=== PATIENT | male | born 1935 | race Caucasian/White ===

== ENCOUNTER 2023-02-23 04:24 | Emergency (ER) | payer MEDICARE, SELFPAY ==
[2023-02-23 04:25] VITALS: BP 173/78; PULSE 82; RESP 18; TEMP 36.4; O2SAT 98
--- NOTE | 2023-02-23 05:10 | ED.MALEGU ---
HPI - Male Genitourinary General Chief complaint: Urogenital-Male Stated complaint: BLOOD IN URINARY CATHETER Time Seen by Provider: 02/23/23 05:07 History of Present Illness HPI Narrative: Patient brought to the emergency department from his shelter facility with hematuria. Patient is alert and oriented to person and place but confused. States that he lives at home with his who is . Patient is unsure why he is in the emergency department. Hematuria noted. He denies all complaints including fevers chills abdominal pain and chest pain Related Data Home Medications Medication Instructions Recorded Confirmed Saccharomyces boulardii 250 mg 250 mg PO BID 02/23/23 capsule apixaban 5 mg tablet (Eliquis) 5 mg PO BID 02/23/23 bisacodyl 10 mg rectal suppository 10 mg RECTAL DAILY PRN Constipation 02/23/23 insulin lispro 100 unit/mL subcut 02/23/23 subcutaneous pen (Humalog KwikPen (U-100) Insulin) levothyroxine 150 mcg tablet 150 mcg PO DAILY 02/23/23 losartan 50 mg tablet 50 mg PO DAILY 02/23/23 magnesium citrate 02/23/23 memantine 5 mg tablet 5 mg PO QAM 02/23/23 metoprolol tartrate 100 mg tablet 100 mg PO ONCE 02/23/23 pravastatin 20 mg tablet 20 mg PO DAILY 02/23/23 sertraline 25 mg tablet 25 mg PO DAILY 02/23/23 tamsulosin 0.4 mg capsule (Flomax) mg PO 02/23/23 trazodone 50 mg tablet 50 mg PO HS 02/23/23 Allergies Allergy/AdvReac Type Severity Reaction Status Date / Time No Known Allergies Allergy Unverified 08/03/18 13:09 Review of Systems Review of Systems: Review of systems negative except what is documented in the HPI Exam Narrative: GENERAL: Well-appearing, well-nourished, and in no acute distress. HEAD: Normocephalic, atraumatic. EYES: PERRLA and EOMI. ENT: Nares clear, no rhinorrhea or epistaxis. Mucous membranes moist. NECK: Supple. CHEST: Clear to auscultation. No respiratory distress. HEART: Regular rate and rhythm. ABDOMEN: Soft, nontender, nondistended. EXTREMITIES: Normal range of motion. No edema. SKIN: Warm, dry, no rash. NEURO: No focal deficits. Alert and oriented x2 PSYCH: Normal mood and affect. Course Course Emergency Course: Hematuria has resolved with CBI. Urinary tract infection likely source of hematuria. Patient is in no distress. Additional labs unremarkable. We will plan for discharge to home Vital Signs Vital signs: Vital Signs Temperature 36.4 C 02/23/23 04:25 Pulse Rate 82 02/23/23 04:25 Respiratory Rate 18 02/23/23 04:25 Blood Pressure 173/78 H 02/23/23 04:25 Pulse Oximetry 98 02/23/23 04:25 Oxygen Delivery Room Air 02/23/23 04:25 Temperature 36.4 C 02/23/23 04:25 Pulse Rate 84 02/23/23 07:09 Respiratory Rate 18 02/23/23 07:09 Blood Pressure 176/75 H 02/23/23 07:09 Pulse Oximetry 98 02/23/23 07:09 Oxygen Delivery Room Air 02/23/23 04:25 MDM - Male Genitourinary Lab Data 02/23/23 05:25 02/23/23 05:25 Labs: Lab Results 02/23/23 02/23/23 Range/Units 05:25 05:30 WBC 9.3 (4.5-10.0) K/mm3 RBC 4.32 L (4.6-6.20) M/mm3 Hgb 12.7 L (14.0-18.0) g/dL Hct 40.9 L (42.0-52.0) % MCV 94.7 (80-100) fl MCH 29.4 (26-34) pg MCHC 31.1 L (32-36) g/dl RDW 15.3 H (11.5-14.5) % Plt Count 341 (150-375) k/mm3 MPV 9.6 (7.4-10.4) fl Immature Gran % (Auto) 0.8 H (0-0.5) % Neut % (Auto) 66.5 (45.5-73.1) % Lymph % (Auto) 15.8 L (18.3-44.2) % [place] % (Auto) 10.0 H (2.6-8.5) % Eos % (Auto) 6.1 H (0-4.4) % Baso % (Auto) 0.8 (0.2-1.2) % Lymph # (Auto) 1.47 (0.9-3.2) K/mm3 [place] # (Auto) 0.9 H (0.1-0.6) K/mm3 Eos # (Auto) 0.6 H (0-0.3) K/mm3 Baso # (Auto) 0.1 (0.0-0.1) K/mm3 Abs Immat Gran (auto) 0.07 H (0.00-0.031) K/mm3 Absolute Neuts (auto) 6.2 (1.3-6.7) K/mm3 Absolute Nucleated RBC 0.0 (0.0-0.012) K/mm3 Nucleated RBC % 0.0 (0.0-0.2) % PT 23.2 H (11.1-14.7) Se
[2023-02-23 05:38] LABS: Basophils Absolute Auto 0.1 K/mm3 (0.0-0.1); Basophils Percent Auto 0.8 % (0.2-1.2); Eosinophils Absolute Auto 0.6 K/mm3 (0-0.3); Eosinophils Percent Auto 6.1 % (0-4.4); Hematocrit 40.9 % (42.0-52.0); Hemoglobin 12.7 g/dL (14.0-18.0); Immature Granulocyte Absolute 0.07 K/mm3 (0.00-0.031); Immature Granulocyte Percent A 0.8 % (0-0.5); Lymphocytes Absolute Auto 1.47 K/mm3 (0.9-3.2); Lymphocytes Percent Auto 15.8 % (18.3-44.2); Mean Corpuscular HGB Conc 31.1 g/dl (32-36); Mean Corpuscular Hemoglobin 29.4 pg (26-34); Mean Corpuscular Volume 94.7 fl (80-100); Mean Platelet Volume 9.6 fl (7.4-10.4); Monocytes Absolute Auto 0.9 K/mm3 (0.1-0.6); Neutrophils Absolute Auto 6.2 K/mm3 (1.3-6.7); Neutrophils Percent Auto 66.5 % (45.5-73.1); Platelet Count Result 341 k/mm3 (150-375); Red Blood Count 4.32 M/mm3 (4.6-6.20); Red Cell Distribution Width 15.3 % (11.5-14.5); White Blood Count 9.3 K/mm3 (4.5-10.0)
[2023-02-23 05:52] LABS: INR 1.9; Prothrombin Time 23.2 Seconds (11.1-14.7)
[2023-02-23 05:54] LABS: Appearance Urine Turbid (Clear); Bilirubin Urine 1+ (Negative); Blood Urine 2+ (Negative); Color Urine Red (Yellow); Glucose Urine UA Negative (Negative); Ketones Urine Negative (Negative); Leukocyte Esterase Ur 3+ LEU/UL (Negative); Nitrate Urine Positive (Negative); Protein Urine 2+ mg/dL (Negative); Urobilinogen Urine 0.2 mg/dL (<2.0)
[2023-02-23 05:55] LABS: Bacteria Urine 4+ /hpf; Need Manual Microscopic Reviewed; Non Pathogenic Casts 0-2; RBC Urine >100 /hpf (0-2); Squamous Epithelial Cell Urine None seen /hpf (Few); WBC Urine >100 /hpf
[2023-02-23 05:56] LABS: Add Urine Microscopic? YES
[2023-02-23 06:10] LABS: Alanine Aminotransferase 19 U/L (6-50); Albumin Level 3.7 g/dL (3.5-5.1); Alkaline Phosphatase 79 U/L (38-126); Anion Gap 10 mmol/L (8-16); Aspartate Amino Transferase 25 U/L (17-59); Bilirubin,Total 0.3 mg/dL (0.2-1.3); Blood Urea Nitrogen 44 mg/dL (9-20); Calcium 8.6 mg/dL (8.4-10.2); Carbon Dioxide 23 mmol/L (22-30); Chloride 107 mmol/L (98-107); Estimated CRCL calculation 33 ml/min; Estimated Glomerular Filt Rate 30; Glucose 115 mg/dL (65-110); Potassium 4.6 mmol/L (3.4-5.0); Sodium 140 mmol/L (137-145)
[2023-02-23 06:12] VITALS: BP 158/78; PULSE 71; RESP 16
[2023-02-23 07:09] VITALS: BP 176/75; PULSE 84; RESP 18; O2SAT 98
[2023-02-23] MEDS: CIPROFLOXACIN 500 MG TAB PO (07:12)
[2023-02-23 08:25] VITALS: BP 142/77; PULSE 72; RESP 21
[2023-02-23 08:34] VITALS: BP 156/86; PULSE 88; RESP 16; O2SAT 98
== END 2023-02-23 08:57 ==
PROVIDERS: Emergency Provider Emergency Medicine; PCP Internal Medicine
DX: N30.01 Acute cystitis with hematuria (principal)
CPT/HCPCS: 36415; 51702; 80053; 81001; 85025; 85610; 85730; 86850; 86900; 86901; 87086; 87088; 99283; A9270

== ENCOUNTER 2023-09-05 08:54 | Emergency (ER) | payer MEDICARE, SELFPAY ==
--- NOTE | ~2023-09-05 | CT_ITS ---
EXAMINATION: CT brain wo con DATE: 09/05/2023 10:34 INDICATION: Altered mental status TECHNIQUE: Computed tomography (CT) of the head was performed without intravenous contrast. Sagittal and coronal reconstructions were performed. The mA was adjusted according to patient size. Iterative reconstruction technique was employed. The dose-length product was 1059.33 mGy-cm. COMPARISON: None FINDINGS: No acute intracranial hemorrhage, acute infarction or abnormal extra axial fluid collection. There is mild scattered white matter hypoattenuation consistent with chronic small vessel ischemic disease. R elatively symmetric dystrophic calcific lesions at the bilateral basal ganglia. Additional minimal dy strophic calcification versus atherosclerotic ossifications at the right cerebellar hemisphere. There is increased prominence of the ventricles slightly more prominent in the right lateral ventricle in the left which is disproportionate to the sulci. There is however slight rightward bowing of the vent ricular septum which would favor ventricular enlargement as sequela of central predominant atrophy. D ifferential would also include normal pressure hydrocephalus in the appropriate clinical setting. No mass/mass effect. 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 The orbits and mastoid air cells are normal. IMPRESSION: 1. Increased prominence of the ventricles which is disproportionate to the mild enlargement of the cortes lci most likely sequela of age-related central predominant atrophy although differential would includ e normal pressure hydrocephalus (NPH: clinical triad ataxia/gait disturbance, dementia, urinary incon tinence). 2. Mild scattered white matter hypoattenuation consistent with chronic small vessel ischemic disease. Reviewed, dictated and finalized at location A. IMPRESSION: 1. Increased prominence of the ventricles which is disproportionate to the mild enlargement of the sulci most likely sequela of age-related central predominan t atrophy although differential would include normal pressure hydrocephalus (YARD SWITCHER H: clinical triad ataxia/gait disturbance, dementia, urinary incontinence). 2. Mild scattered white matter hypoattenuation consistent with chronic small ve ssel ischemic disease.
--- NOTE | ~2023-09-05 | CT_ITS ---
EXAMINATION: CT chest abdomen pelvis wo con DATE: 09/05/2023 10:34 INDICATION: Abdominal pain. Altered mental status. TECHNIQUE: Computed tomography (CT) of the chest, abdomen, and pelvis was performed with 100 CC Omnip aque 350 intravenous contrast. Automated exposure control and iterative reconstruction technique were employed. Exam dose: 1730.06 mGy-cm total exam DLP. COMPARISON: None FINDINGS: CHEST CT: There is primarily dependent and particularly basilar right lower lobe atelectasis, minimal dependent left basilar atelectasis and minimal lingular discoid atelectasis or scarring. Normal heart size. No pericardial effusion. There is thoracic aortic and great vessel and coronary ar mick calcification. No thoracic aortic aneurysm. No hilar or mediastinal mass lesion or lymphadenopathy. Small right pleural effusion. ABDOMEN/PELVIS CT: The liver, gallbladder, bile ducts, pancreas, pancreatic duct and spleen are unremarkable. Normal morphology of the adrenal glands. No renal mass lesion or urinary tract calculus or hydroureteronephrosis. There is prominent prostate enlargement. There is mild diffuse thickening of the urinary bladder wall and minimal diverticulum formation of the bladder. There is some fat stranding around the bladder; c ystitis is not excluded.. There is a Barrios catheter within the urinary bladder. There is atherosclerotic calcification of the abdominal aorta and branches. No abdominal aortic aneur ysm. Infrarenal IVC filter. No intraperitoneal or retroperitoneal or pelvic mass lesion or adenopathy or ascites is noted. Diverticulosis of the sigmoid colon; no CT evidence of diverticulitis. No bowel obstruction. Normal a ppendix. There is some liquid stool in the right colon. There are some scattered small bowel air-flui d levels as well. Prominent osteoarthritic change at the right glenohumeral joint. Prominent degenerative disc disease of the lower cervical spine (C5-6 and C6-7). Mild degenerative spurring of the thoracic spine. Moderately severe degenerative disc disease is noted at L2-3 and L5-S1. Bilateral hip osteoarthritis. No suspicious osteolytic or osteoblastic lesions. IMPRESSION: Bibasilar atelectasis, greater on the right and small right pleural effusion Prostate enlargement Mild bladder wall thickening, minimal diverticulum formation; pericystic fat stranding. Cystitis is n ot excluded. Barrios catheter in urinary bladder. Prostatomegaly Diverticulosis of sigmoid colon; no evidence of diverticulitis Normal appendix Reviewed, dictated and finalized at [facility]. Reviewed, dictated and finalized at location B. IMPRESSION: Bibasilar atelectasis, greater on the right and small right pleura l effusion Prostate enlargement Mild bladder wall thickening, minimal diverticulum formation; pericystic fat st randing. Cystitis is not excluded. Barrios catheter in urinary bladder. Prostatomegaly Diverticulosis of sigmoid colon; no evidence of diverticulitis Normal appendix
[2023-09-05 08:59] VITALS: BP 81/45; PULSE 109; RESP 32; TEMP 36.9; O2SAT 97
[2023-09-05 09:00] VITALS: O2SAT 96
--- NOTE | 2023-09-05 09:13 | ECG_ITS ---
Measurements Intervals [place] Rate: 109 P: 56 IN: 161 QRS: -50 QRSD: 102 T: 72 QT: 346 QTc: 466 Interpretive Statements SINUS TACHYCARDIA LEFT ANTERIOR FASCICULAR BLOCK NONSPECIFIC ST-T WAVE ABNORMALITY- HIGH LATERAL LEADS BASELINE ARTIFACT- I, II, III, AVR ABNORMAL ECG NO PREVIOUS ECG AVAILABLE FOR COMPARISON Electronically Signed On 09-05-2023 9:26:08 CDT by Martínez Boggs D.O.
[2023-09-05 09:34] LABS: Hematocrit 40.6 % (42.0-52.0); Hemoglobin 12.8 g/dL (14.0-18.0); Mean Corpuscular HGB Conc 31.5 g/dl (32-36); Mean Corpuscular Hemoglobin 28.3 pg (26-34); Mean Corpuscular Volume 89.8 fl (80-100); Mean Platelet Volume 11.1 fl (7.4-10.4); Platelet Count Result 151 k/mm3 (150-375); Red Blood Count 4.52 M/mm3 (4.6-6.20); Red Cell Distribution Width 16.8 % (11.5-14.5); White Blood Count 22.8 K/mm3 (4.5-10.0)
[2023-09-05 09:50] LABS: INR 1.9; Prothrombin Time 23.4 Seconds (11.1-14.7)
[2023-09-05 09:51] LABS: Partial Thromboplastin Time 38.1 Seconds (22.3-36.8)
[2023-09-05] MEDS: SODIUM CHLORIDE 0.9% IV 3,300 ML/1,000 ML BAG 999 ML IV CONT ×3 (09:54→12:16)
[2023-09-05 09:59] LABS: Band Neutrophils Percent 19 % (0-6); Lymphocytes Absolute Manual 0.45 K/mm3 (1.1-4.5); Monocytes Absolute Manual 1.82 K/mm3 (0.1-0.90); Monocytes Percent Manual 8 % (3-9); Myelocytes Percent 1 %; Neutrophils Absolute Manual 20.29 K/mm3 (1.3-6.7); Neutrophils Percent Manual 70 % (46-73); Platelet Estimate Adequate (Adequate); Total Cells Counted 100
[2023-09-05 10:00] LABS: Anisocytosis 1+; Schistocytes None Seen
[2023-09-05 10:02] LABS: Alanine Aminotransferase 33 U/L (6-50); Albumin Level 3.1 g/dL (3.5-5.1); Alkaline Phosphatase 104 U/L (38-126); Anion Gap 9 mmol/L (8-16); Aspartate Amino Transferase 188 U/L (17-59); Bilirubin,Total 0.7 mg/dL (0.2-1.3); Blood Urea Nitrogen 92 mg/dL (9-20); Calcium 8.2 mg/dL (8.4-10.2); Carbon Dioxide 20 mmol/L (22-30); Chloride 109 mmol/L (98-107); Estimated CRCL calculation 8 ml/min; Estimated Glomerular Filt Rate 7; Glucose 103 mg/dL (65-110); Potassium 4.4 mmol/L (3.4-5.0); Sodium 138 mmol/L (137-145)
--- NOTE | 2023-09-05 10:27 | ED.AMS ---
HPI - Altered Mental Status General Chief Complaint: Altered Mental Status Stated Complaint: ams Time Seen by Provider: 09/05/23 09:13 History of Present Illness HPI narrative: HPI limited due to patient's altered mental status. This is an 87-year-old male, with history of DVT on Eliquis, [facility] in [facility] for altered mental status. EMS reports, the patient has a baseline mental status of A&O x2. Over the past 3 days, nursing staff at his prison reportedly noticed increased confusion and delayed response. EMS on arrival noted tachycardia with hypotension to the 80s. The patient was started on IV fluids brought for evaluation. Related Data Home Medications Medication Instructions Recorded Confirmed Saccharomyces boulardii 250 mg 250 mg PO BID 02/23/23 capsule apixaban 5 mg tablet (Eliquis) 5 mg PO BID 02/23/23 bisacodyl 10 mg rectal suppository 10 mg RECTAL DAILY PRN Constipation 02/23/23 insulin lispro 100 unit/mL subcut 02/23/23 subcutaneous pen (Humalog KwikPen (U-100) Insulin) levothyroxine 150 mcg tablet 150 mcg PO DAILY 02/23/23 losartan 50 mg tablet 50 mg PO DAILY 02/23/23 magnesium citrate 02/23/23 memantine 5 mg tablet 5 mg PO QAM 02/23/23 metoprolol tartrate 100 mg tablet 100 mg PO ONCE 02/23/23 pravastatin 20 mg tablet 20 mg PO DAILY 02/23/23 sertraline 25 mg tablet 25 mg PO DAILY 02/23/23 tamsulosin 0.4 mg capsule (Flomax) mg PO 02/23/23 trazodone 50 mg tablet 50 mg PO HS 02/23/23 Allergies Allergy/AdvReac Type Severity Reaction Status Date / Time No Known Allergies Allergy Verified 09/05/23 11:24 Review of Systems Review of Systems: Unable to obtain review of systems due to altered mental status PMFSH Past Medical History Medical History DVT (deep venous thrombosis) Hypertension Hyperthyroidism Surgical History Surgical History No significant past surgical history Social History Social History Smoking status: Unknown if ever smoked Alcohol intake: unknown Substance use: unknown Exam Narrative: GENERAL: Well-developed, well-nourished, appears confused HEAD: Normocephalic, atraumatic. EYES: PERRLA and EOMI. ENT: Nares clear, no rhinorrhea or epistaxis. Mucous membranes dry. Oropharynx without tonsillar hypertrophy exudate or other lesions. CHEST: Clear to auscultation. No respiratory distress. No wheezes rales or rhonchi HEART: Tachycardic with regular rhythm. No murmur heard. Normal peripheral pulses. ABDOMEN: Soft, diffusely tender to palpation, without rebound or guarding, nondistended, normal active bowel sounds. : Barrios catheter in place draining turbid urine EXTREMITIES: Normal range of motion. No edema. SKIN: Warm, dry, no rash. NEURO: Alert and oriented x2. No focal deficit. Moving all 4 limbs spontaneously Course Course Emergency Course: 09:25 - I have a strong suspicion for sepsis. Will treat with IV fluids and antibiotics with presumed urinary tract infection. Review of patient's documentation shows he is on DNR comfort orders. Pending workup and the patient's response to initial intervention, will discuss him with family members regarding goals of care. 12:03 - White blood cell count elevated to 22. Hemoglobin demonstrates mild anemia with hemoglobin of 12.6. INR 1.9. Chemistries demonstrate acute renal failure with creatinine of 7.5 in BUN of 92. Initial lactic acid 3.0. Mild hypocalcemia with calcium of 8.2. Urinalysis appears consistent with urinary tract infection. CT chest abdomen pelvis demonstrates changes consistent with urinary tract infection but is otherwise not concerning for acute cardiopulmonary process. CT head demonstrates changes that may be consistent with normal pressure hydrocephalus but is not otherwise concerning for
[2023-09-05 10:32] LABS: Appearance Urine Turbid (Clear); Bacteria Urine 4+ /hpf; Bilirubin Urine Negative (Negative); Blood Urine 2+ (Negative); Color Urine Yellow (Yellow); Glucose Urine UA Negative (Negative); Ketones Urine Negative (Negative); Leukocyte Esterase Ur 3+ LEU/UL (Negative); Need Manual Microscopic Reviewed; Nitrate Urine Negative (Negative); Non Pathogenic Casts 0-2; Protein Urine 1+ mg/dL (Negative); RBC Urine 0-2 /hpf (0-2); Squamous Epithelial Cell Urine None Seen /hpf (Few); Urobilinogen Urine 0.2 mg/dL (<2.0)
[2023-09-05 10:42] LABS: Add Urine Microscopic? YES
--- NOTE | 2023-09-05 12:42 | PC.NURSE ---
attempted to call son per Dr. Karimi request, no answer with cell or home numbers. provider aware
[2023-09-05 13:08] LABS: Reflex Lactic Acid Yes or No Add Lactic
== END 2023-09-05 13:13 ==
PROVIDERS: Emergency Provider Preventive Medicine Aerospace Medicine
DX: A41.9 Sepsis, unspecified organism (principal); R65.21 Severe sepsis with septic shock; Z66 Do not resuscitate; N17.9 Acute kidney failure, unspecified; N39.0 Urinary tract infection, site not specified; I10 Essential (primary) hypertension; E11.9 Type 2 diabetes mellitus without complications; E05.90 Thyrotoxicosis, unspecified without thyrotoxic crisis or storm; Z86.718 Personal history of other venous thrombosis and embolism; Z79.01 Long term (current) use of anticoagulants; Z79.4 Long term (current) use of insulin; R00.0 Tachycardia, unspecified; I44.4 Left anterior fascicular block; R94.31 Abnormal electrocardiogram [ECG] [EKG]; N40.0 Benign prostatic hyperplasia without lower urinary tract symptoms; K57.30 Diverticulosis of large intestine without perforation or abscess without bleeding
CPT/HCPCS: 36415; 70450; 71250; 74176; 80053; 83605; 85025; 85610; 85730; 87040; 87077; 87086; 87088; 87186; 93005; 96361; 96365; 99284; J0696; J7030

== ENCOUNTER 2023-10-10 13:20 | Emergency (ER) | payer OTHER, MEDICARE, SELFPAY ==
[2023-10-10] VITALS (15 sets, daily range): BP systolic 90–118; BP diastolic 49–85; PULSE 74–90; RESP 15–20; TEMP 36.3; O2SAT 97–100
--- NOTE | 2023-10-10 13:33 | ECG_ITS ---
SEE SCANNED COPY FOR CONFIRMED REPORT MTDD
--- NOTE | 2023-10-10 13:43 | ED.MALEGU ---
HPI - Male Genitourinary General Chief complaint: Urogenital-Male Stated complaint: self removed urinary catheter, penile injury Time Seen by Provider: 10/10/23 13:28 History of Present Illness HPI Narrative: Patient is an 87-year-old male with history of DVT, on Eliquis, alert and oriented x1 at baseline, hospice at [facility] here with [place] issue. Per facility staff they noted he was actively bleeding from his penis. It was never pulled out, they never had to replace it. Hospice had seen him today and they noted some blood on his penis and groin and had wanted him sent into the ER for a suprapubic catheter placement. This was reportedly discussed with family/DPOA. Patient denies any pain. Patient has no complaints. Per [facility] hospice on 10/07 he had some bleeding from his penis, bleeding from around the catheter. This was replaced on the 10/07. She spoke with son who noted recurrent attempts to try and pull on his condon catheter. [facility] doctor recommended to be monitored. Then today an STOCK CONTROLLER through the hospice program evaluated him, noted a tear in his urethra and sent him into the ER for possible suprapubic catheter placement. The patient's hospice nurse is unsure if family would want any sort of procedure performed as he is 87 on hospice. Related Data Home Medications Medication Instructions Recorded Confirmed Saccharomyces boulardii 250 mg 250 mg PO BID 02/23/23 capsule apixaban 5 mg tablet (Eliquis) 5 mg PO BID 02/23/23 bisacodyl 10 mg rectal suppository 10 mg RECTAL DAILY PRN Constipation 02/23/23 insulin lispro 100 unit/mL subcut 02/23/23 subcutaneous pen (Humalog KwikPen (U-100) Insulin) levothyroxine 150 mcg tablet 150 mcg PO DAILY 02/23/23 losartan 50 mg tablet 50 mg PO DAILY 02/23/23 magnesium citrate 02/23/23 memantine 5 mg tablet 5 mg PO QAM 02/23/23 metoprolol tartrate 100 mg tablet 100 mg PO ONCE 02/23/23 pravastatin 20 mg tablet 20 mg PO DAILY 02/23/23 sertraline 25 mg tablet 25 mg PO DAILY 02/23/23 tamsulosin 0.4 mg capsule (Flomax) mg PO 02/23/23 trazodone 50 mg tablet 50 mg PO HS 02/23/23 Allergies Allergy/AdvReac Type Severity Reaction Status Date / Time No Known Allergies Allergy Verified 09/05/23 11:24 Review of Systems Review of Systems: ROS unobtainable: Yes unobtainable due to mental status PMFSH Past Medical History Medical History DVT (deep venous thrombosis) Hypertension Hyperthyroidism Surgical History Surgical History No significant past surgical history Social History Social History Smoking status: Unknown if ever smoked Alcohol intake: unknown Substance use: unknown Exam Narrative: GENERAL: Well-appearing, well-nourished, and in no acute distress. HEAD: Normocephalic, atraumatic. EYES: PERRLA and EOMI. ENT: Nares clear. Mucous membranes moist. NECK: Supple. CHEST: Clear to auscultation. No respiratory distress. HEART: Regular rate and rhythm. Normal peripheral pulses. ABDOMEN: Soft, nontender, nondistended. : (RN at bedside during exam) Dark blood present at ureteral meatus. Dried blood present around penis. Non tender. Kari colored urine in condon bag. EXTREMITIES: Normal range of motion. No edema. SKIN: Warm, dry, no rash. NEURO: No focal deficits. Alert and oriented x1. PSYCH: Normal mood and affect. Pleasent man. Course Course Emergency Course: Chart review performed. Patient here from [facility] with concern for penile injury after pulling our condon catheter. Staff reportedly replaced condon. Urethra is reportedly large and they noted blood to penis and groin. Patient AOx1 at baseline. Triage vitals show borderline low BP of 100/57, afebrile, otherwise normal. Last ED visit note reviewed. Patient has history of DVT on eliquis, HTN, was brought here with low bp and delayed r
[2023-10-10 14:22] LABS: Basophils Absolute Auto 0.1 K/mm3 (0.0-0.1); Basophils Percent Auto 1.5 % (0.2-1.2); Eosinophils Absolute Auto 0.2 K/mm3 (0-0.3); Eosinophils Percent Auto 3.5 % (0-4.4); Hematocrit 42.2 % (42.0-52.0); Hemoglobin 12.5 g/dL (14.0-18.0); Immature Granulocyte Absolute 0.05 K/mm3 (0.00-0.031); Immature Granulocyte Percent A 0.7 % (0-0.5); Lymphocytes Absolute Auto 1.53 K/mm3 (0.9-3.2); Lymphocytes Percent Auto 22.5 % (18.3-44.2); Mean Corpuscular HGB Conc 29.6 g/dl (32-36); Mean Corpuscular Hemoglobin 27.6 pg (26-34); Mean Corpuscular Volume 93.2 fl (80-100); Mean Platelet Volume 9.7 fl (7.4-10.4); Monocytes Absolute Auto 0.5 K/mm3 (0.1-0.6); Monocytes Percent Auto 7.9 % (2.6-8.5); Neutrophils Absolute Auto 4.4 K/mm3 (1.3-6.7); Neutrophils Percent Auto 63.9 % (45.5-73.1); Platelet Count Result 403 k/mm3 (150-375); Red Blood Count 4.53 M/mm3 (4.6-6.20); Red Cell Distribution Width 17.3 % (11.5-14.5); White Blood Count 6.8 K/mm3 (4.5-10.0)
--- NOTE | 2023-10-10 14:27 | PC.NURSE ---
Irrigated indwelling condon catheter. Catheter patent and draining after sediment cleared. Bladder scan measurement 84 ml.
[2023-10-10 14:35] LABS: INR 1.1; Prothrombin Time 14.6 Seconds (11.1-14.7)
[2023-10-10 14:36] LABS: Partial Thromboplastin Time 32.7 Seconds (22.3-36.8)
[2023-10-10 14:39] LABS: Lactic Acid Reflex 1.4 mmol/L (0.7-2.0)
[2023-10-10 14:41] LABS: Alanine Aminotransferase 13 U/L (6-50); Albumin Level 3.5 g/dL (3.5-5.1); Alkaline Phosphatase 66 U/L (38-126); Anion Gap 5 mmol/L (4-12); Aspartate Amino Transferase 32 U/L (17-59); Bilirubin,Total 0.6 mg/dL (0.2-1.3); Blood Urea Nitrogen 37 mg/dL (9-20); CRP 5.2 mg/dL (<1.0); Calcium 8.9 mg/dL (8.4-10.2); Carbon Dioxide 24 mmol/L (22-30); Chloride 109 mmol/L (98-107); Estimated CRCL calculation 27 ml/min; Estimated Glomerular Filt Rate 30; Glucose 136 mg/dL (65-110); Lipase 139 U/L (23-300); Potassium 4.2 mmol/L (3.4-5.0); Sodium 138 mmol/L (137-145)
[2023-10-10 14:51] LABS: Hypochromasia 1+; Platelet Estimate Adequate (Adequate); Schistocytes None Seen
[2023-10-10] MEDS: ONDANSETRON INJ 4 MG/2 ML VIAL IV PUSH (15:09)
--- NOTE | 2023-10-10 15:13 | PC.NURSE ---
Pt blood pressures reported to Dr. Asif, 90s/50-60s, VORB for ordered 4mg morphine IVP decreased to 2mg stat.
[2023-10-10] MEDS: LACTATED RINGERS 1,000 ML 999 ML IV CONT (15:18)
[2023-10-10] MEDS: MORPHINE SULFATE (*CRX) 4 MG/ML INJ IV PUSH (15:18)
[2023-10-10 16:00] LABS: Add Urine Microscopic? YES; Appearance Urine Sl Cloudy (Clear); Bilirubin Urine 1+ (Negative); Blood Urine 2+ (Negative); Color Urine Yellow (Yellow); Glucose Urine UA Negative (Negative); Ketones Urine Negative (Negative); Leukocyte Esterase Ur 2+ LEU/UL (Negative); Nitrate Urine Negative (Negative); Protein Urine 1+ mg/dL (Negative); Specific Grav Ur 1.025 (1.001-1.035); Urobilinogen Urine 0.2 mg/dL (<2.0); pH Urine 5.5 (5.0-9.0)
[2023-10-10 16:03] LABS: Squamous Epithelial Cell Urine Few /hpf (Few)
[2023-10-10 16:04] LABS: Bacteria Urine 1+ /hpf
--- NOTE | 2023-10-10 17:27 | PC.NURSE ---
[facility] was contacted for report upon disposition and transfer back to [place].
--- NOTE | 2023-10-10 17:30 | PC.NURSE ---
Abby with [facility] called for update on patient. States a call back at [phone] is requested upon patient departure from ER.
--- NOTE | 2023-10-10 18:54 | PC.NURSE ---
[facility] was called for patient transfer disposition
== END 2023-10-10 18:54 | disposition hospice, home (50) ==
PROVIDERS: Emergency Provider Student in an Organized Health Care Education/Training Program
DX: T83.021A Displacement of indwelling urethral catheter, initial encounter (principal); N39.0 Urinary tract infection, site not specified; Z86.718 Personal history of other venous thrombosis and embolism; Z79.01 Long term (current) use of anticoagulants; I10 Essential (primary) hypertension; E05.90 Thyrotoxicosis, unspecified without thyrotoxic crisis or storm
CPT/HCPCS: 36415; 80053; 81001; 83605; 83690; 85025; 85610; 85730; 86140; 87040; 87077; 87086; 87088; 87181; 93005; 96361; 96374; 96375; 99284; J2270; J2405; J7120